=== PATIENT | female | born 1940 | race African-American/Black ===

== ENCOUNTER 2018-05-22 17:01 | Emergency (ER) | payer OTHER ==
[~2018-05-22] VITALS: Ht 167.6 cm; Wt 67.1 kg
[~2018-05-22 17:01] MED LIST: ATIVAN1 MG PO; CAL40 PO; COU1 PO; COU5 PO; ENALAPRIL20 MG PO; HEP5I SQ; LORAZEPAM1 PO; LOSARTAN POTAS100 MG PO; OXYBUTYNIN5 M1 PO; PRE20 PO; VERAPAMIL ER240 MG PO; WARFARIN SOD5 M1 PO; WARFARIN SODIUM3 M1 PO; WARFARIN4 MG PO
[2018-05-22 17:09] VITALS: BP 148/84; Ht 167.6 cm; Wt 67.1 kg
== END 2018-05-22 18:10 | disposition home or self-care (01) ==
LOC: ED 17:01
DX: Z02.79 Encounter for issue of other medical certificate (principal)